=== PATIENT | female | born 2000 | race Hispanic/Latino ===

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

== ENCOUNTER 2019-03-01 17:25 | Observation (INO) | payer MEDICAID, OTHER ==
[~2019-03-01] VITALS: Ht 157.5 cm; Wt 77.1 kg
[2019-03-01 18:17] LABS: APPEARANCE,URINE Clear (CLEAR); BILIRUBIN,URINE Negative (NEGATIVE); COLOR,URINE Yellow (YELLOW); GLUCOSE, URINE (UA) Negative (NEGATIVE); KETONES,URINE Negative (NEGATIVE); LEUKOCYTE ESTERASE ,URINE Negative (NEGATIVE); NITRATE,URINE Negative (NEGATIVE); OCCULT BLOOD,URINE Negative (NEGATIVE); PROTEIN,URINE Negative (NEGATIVE); UROBILINOGEN,URINE 0.2 mg/dL (0.2-1.0)
[2019-05-20] MEDS ORDERED: FERR-82 PO (16:39)
[2019-05-20] MEDS ORDERED: PNV1TABL17 PO (16:39)
== END 2019-03-01 18:52 | disposition home or self-care (01) ==
LOC: EDH 17:25 → LDH 17:50
PROVIDERS: ADMIT Obstetrics & Gynecology; ATTEND Obstetrics & Gynecology
DX: O26.893 Other specified pregnancy related conditions, third trimester (principal); R10.30 Lower abdominal pain, unspecified; Z3A.28 28 weeks gestation of pregnancy
CPT/HCPCS: 81003; 99284; G0378

== ENCOUNTER 2019-05-19 11:47 | Observation (INO) | payer MEDICAID ==
[~2019-05-19] VITALS: Ht 157.5 cm; Wt 83.5 kg
[2019-05-19 12:41] LABS: BILIRUBIN,URINE Negative (NEGATIVE); COLOR,URINE Yellow (YELLOW); GLUCOSE, URINE (UA) Negative (NEGATIVE); KETONES,URINE Negative (NEGATIVE); LEUKOCYTE ESTERASE ,URINE Trace (NEGATIVE); NITRATE,URINE Negative (NEGATIVE); OCCULT BLOOD,URINE Moderate (NEGATIVE); PROTEIN,URINE Negative (NEGATIVE)
[2019-05-19 12:44] LABS: APPEARANCE,URINE CLOUDY (CLEAR)
[2019-05-19 12:54] LABS: BACTERIA,URINE Few /HPF (None Seen); MUCUS,URINE Moderate LPF (None Seen); WBC,URINE 0-1 /HPF (0-1)
[2019-05-20] MEDS ORDERED: PNV1TABL17 PO (16:39)
[2019-05-20] MEDS ORDERED: FERR-82 PO (16:39)
== END 2019-05-19 13:39 | disposition home or self-care (01) ==
LOC: EDH 11:47 → LDH 11:48
PROVIDERS: ADMIT Obstetrics & Gynecology; ATTEND Obstetrics & Gynecology
DX: O62.9 Abnormality of forces of labor, unspecified (principal); Z3A.39 39 weeks gestation of pregnancy
CPT/HCPCS: 81001; 99284; G0378 ×2

== ENCOUNTER 2020-08-01 15:06 | Observation (INO) | payer MEDICAID ==
[~2020-08-01] VITALS: Ht 152.4 cm; Wt 78.0 kg
[~2020-08-01 15:06] MED LIST: FERR-82 PO; PNV1TABL17 PO
[2020-08-01 16:18] LABS: APPEARANCE,URINE Clear (CLEAR); BILIRUBIN,URINE Negative (NEGATIVE); COLOR,URINE Yellow (YELLOW); GLUCOSE, URINE (UA) Negative (NEGATIVE); KETONES,URINE Negative (NEGATIVE); LEUKOCYTE ESTERASE ,URINE Moderate (NEGATIVE); NITRATE,URINE Negative (NEGATIVE); OCCULT BLOOD,URINE Negative (NEGATIVE); PROTEIN,URINE Negative (NEGATIVE)
[2020-08-01 16:27] LABS: AMPHET/METH SCREEN,URINE NEGATIVE (NEGATIVE); BARBITURATE SCREEN, URINE NEGATIVE (NEGATIVE); BENZODIAZEPINES SCREEN,URINE NEGATIVE (NEGATIVE); CANNABINOID SCREEN,URINE NEGATIVE (NEGATIVE); COCAINE SCREEN,URINE NEGATIVE (NEGATIVE); OPIATE SCREEN,URINE NEGATIVE (NEGATIVE); PHENCYCLIDINE SCREEN,URINE NEGATIVE (NEGATIVE)
[2020-08-01 16:33] LABS: RBC,URINE 0-1 /HPF (0-1)
[2020-08-01 16:34] LABS: BACTERIA,URINE Few /HPF (None Seen); SQUAMOUS EPITHELIAL CELL,UR Moderate /HPF (0-2)
[2020-08-01 16:35] LABS: MUCUS,URINE Few LPF (None Seen)
[2020-08-01 16:43] VITALS: BP 121/65
== END 2020-08-01 17:05 | disposition home or self-care (01) ==
LOC: EDH 15:06 → LDH 15:07
PROVIDERS: ADMIT Obstetrics & Gynecology; ATTEND Obstetrics & Gynecology
DX: O62.9 Abnormality of forces of labor, unspecified (principal); Z3A.37 37 weeks gestation of pregnancy
CPT/HCPCS: 80305; 81001; 87088; 99284; G0378 ×2

== ENCOUNTER 2020-08-03 09:01 | Inpatient (IN) | payer MEDICAID ==
[~2020-08-03] VITALS: Ht 157.5 cm; Wt 78.0 kg
[2020-08-03] MEDS ORDERED: LACTATED RINGERS 1000ML 1,000 ML IV PRN (09:32)
[2020-08-03 09:41] LABS: HEMATOCRIT 32.4 % (36-48); MEAN CORPUSCULAR HEMOGLOBIN 25.2 pg (27.0-33.0); MEAN CORPUSCULAR HGB CONC 31.5 g/dL (32.0-36.0); MEAN CORPUSCULAR VOLUME 80.2 fL (80-100); RED BLOOD CELL COUNT(AUTO) 4.04 MIL/uL (4.00-5.50); RED CELL DISTRIBUTION WIDTH 14.1 % (11.0-15.5)
[2020-08-03 09:53] LABS: APPEARANCE,URINE Cloudy (CLEAR); BILIRUBIN,URINE Negative (NEGATIVE); COLOR,URINE Yellow (YELLOW); GLUCOSE, URINE (UA) Negative (NEGATIVE); KETONES,URINE Negative (NEGATIVE); LEUKOCYTE ESTERASE ,URINE Trace (NEGATIVE); NITRATE,URINE Negative (NEGATIVE); OCCULT BLOOD,URINE Moderate (NEGATIVE); PROTEIN,URINE Negative (NEGATIVE)
[2020-08-03 10:00] LABS: BACTERIA,URINE Few /HPF (None Seen); MUCUS,URINE Few LPF (None Seen); SQUAMOUS EPITHELIAL CELL,UR Few /HPF (0-2)
[2020-08-03] MEDS ORDERED: AMPICILLIN 2GM+NS 100ML 100 ML IV SCH (10:00)
[2020-08-03] MEDS ORDERED: AMPICILLIN 1GM+NS 50ML 50 ML IV SCH (10:00)
[2020-08-03] MEDS ORDERED: PROMETHAZINE HCL 25 MG/ML 1ML AMPULE IM PRN (10:00)
[2020-08-03] MEDS ORDERED: MEPERIDINE-PF 50 MG/ML SYG IVP PRN (10:00)
[2020-08-03] MEDS ORDERED: EPHEDRINE SULFATE 50 MG/ML AMPULE IVP PRN (10:00)
[2020-08-03] MEDS ORDERED: OXYTOCIN 10 USP UNITS/ML 20 UNIT in LACTATED RINGERS 1000ML 1,000 ML IV SCH (10:00)
[2020-08-03] MEDS ORDERED: LACTATED RINGERS 500 ML 500 ML IV PRN (10:00)
[2020-08-03] MEDS ORDERED: OXYTOCIN-LR 20 UNITS/1000 ML 1,000 ML IV SCH ×2 (10:00→13:45)
[2020-08-03] MEDS ORDERED: NALOXONE HCL 0.4 MG/1 ML ML IV PRN (10:00)
[2020-08-03] MEDS ORDERED: ACETAMINOPHEN-CODEINE 300/30MG TAB PO PRN (13:45)
[2020-08-03] MEDS ORDERED: WITCH HAZEL 1 PAD TP PRN (13:45)
[2020-08-03] MEDS ORDERED: LANOLIN 30GM OINTMENT TP PRN (13:45)
[2020-08-03] MEDS ORDERED: BENZOCAINE/LANOLIN/ALOE VERA 60 ML AEROSOL TP PRN (13:45)
[2020-08-03] MEDS ORDERED: MEASLES/MUMPS/RUBELLA VACCINE, LIVE 0.5 ML/VIAL SQ PRN (13:45)
[2020-08-03] MEDS ORDERED: DIPH,PERTUSS(ACELL),TET VAC/PF 0.5 ML VIAL IM PRN (13:45)
[2020-08-03] MEDS ORDERED: ACETAMINOPHEN 325 MG TAB PO PRN (13:45)
[2020-08-03 14:55] VITALS: BP 116/71
[2020-08-03 16:30] VITALS: BP 111/72
[2020-08-03] MEDS: IBUPROFEN 600 MG TABLET PO PRN (19:43)
[2020-08-03 19:45] VITALS: BP 111/72
[2020-08-03] MEDS: DOCUSATE SODIUM 100 MG CAP PO SCH (20:55)
[2020-08-04 00:06] VITALS: BP 102/61
[2020-08-04 03:58] VITALS: BP 95/60
[2020-08-04 06:44] LABS: HEMATOCRIT 31.1 % (36-48); MEAN CORPUSCULAR HGB CONC 31.5 g/dL (32.0-36.0); MEAN CORPUSCULAR VOLUME 79.3 fL (80-100); PLATELET COUNT (AUTO) 274 K/uL (130-400); RED BLOOD CELL COUNT(AUTO) 3.92 MIL/uL (4.00-5.50); RED CELL DISTRIBUTION WIDTH 14.3 % (11.0-15.5); WHITE BLOOD COUNT (AUTO) 11.7 K/uL (4.8-10.8)
[2020-08-04 07:18] LABS: HEPATITIS Bs ANTIGEN SCREEN P Negative (Negative)
[2020-08-04 07:45] VITALS: BP 120/78
[2020-08-04] MEDS: DOCUSATE SODIUM 100 MG CAP PO SCH (09:43)
[2020-08-04] MEDS: IBUPROFEN 600 MG TABLET PO PRN (09:45)
[2020-08-04 11:11] VITALS: BP 106/64
--- NOTE | 2020-08-04 12:35 | NUR ---
pt is dismissed, verbal and written discharge instructions given, pls refer to exit care. informed of the follow up appointment, prescription given. informed to call the doctor for further questions. pt voiced understanding to all things discussed. Waiting for baby's discharge. Addendum: 08/04/20 at 1257 by JAN NEVAREZ RN Amended: Links added.
[2020-08-04 16:42] VITALS: BP 103/71
--- NOTE | 2020-08-04 17:30 | NUR ---
pt is dismissed in stable condition, brought to private car via wheelchair by Kaitlyn Raymond RN Addendum: 08/04/20 at 1733 by JAN NEVAREZ RN Amended: Links added.
== END 2020-08-04 17:30 | disposition home or self-care (01) | DRG 560 ==
LOC: EDH 09:01 → OBSVTOIN 09:02 → LDH 09:02 → WSH 15:32
PROVIDERS: ADMIT Obstetrics & Gynecology; ATTEND Obstetrics & Gynecology
PROC: 10E0XZZ Delivery of Products of Conception, External Approach (ICD-10-PCS; principal; 2020-08-03)
PROC: 3E0234Z Introduction of Serum, Toxoid and Vaccine into Muscle, Percutaneous Approach (ICD-10-PCS; 2020-08-03)
DX: O69.81X0 Labor and delivery complicated by cord around neck, without compression, not applicable or unspecified (principal); Z3A.38 38 weeks gestation of pregnancy; Z37.0 Single live birth; O99.824 Streptococcus B carrier state complicating childbirth; Z23 Encounter for immunization
CPT/HCPCS: 36415; 80305; 81001; 85027; 86592; 86850; 86900; 86901; 87088; 87340; A4351; A4606; G0378; J0290; J2590; J7120

== ENCOUNTER 2021-04-01 11:15 | Emergency (ER) | payer MEDICAID ==
[~2021-04-01 11:15] MED LIST changes: -FERR-82 PO
[2021-04-01] MEDS ORDERED: ONDANSETRON ODT 4 MG TAB ONE (11:27)
[2021-04-01 11:35] LABS: APPEARANCE,URINE Turbid (CLEAR); BILIRUBIN,URINE Small (NEGATIVE); COLOR,URINE Dark Yellow (YELLOW); GLUCOSE, URINE (UA) Negative (NEGATIVE); KETONES,URINE Trace mg/dL (NEGATIVE); LEUKOCYTE ESTERASE ,URINE Small (NEGATIVE); NITRATE,URINE Negative (NEGATIVE); OCCULT BLOOD,URINE Negative (NEGATIVE); PH,URINE >=9.0 (5.0-8.0); PROTEIN,URINE POS 1+ mg/dL (NEGATIVE)
[2021-04-01 11:42] LABS: HCG,QUAL RESULT NEGATIVE (NEGATIVE)
[2021-04-01 11:48] LABS: RBC,URINE 0-1 /HPF (0-1)
[2021-04-01 11:49] LABS: AMORPHOUS SEDIMENT,UR Moderate /LPF (None Seen); BACTERIA,URINE Moderate /HPF (None Seen); SQUAMOUS EPITHELIAL CELL,UR Moderate /HPF (0-2)
== END 2021-04-01 12:14 | disposition home or self-care (01) ==
LOC: EDH 11:15
DX: R11.2 Nausea with vomiting, unspecified (principal)
CPT/HCPCS: 81001; 81025; 87088

== ENCOUNTER 2021-05-05 18:37 | Emergency (ER) | payer MEDICAID, OTHER ==
[~2021-05-05] VITALS: Ht 157.5 cm; Wt 78.9 kg
[2021-05-05 18:39] VITALS: BP 111/65
== END 2021-05-05 20:29 | disposition left against medical advice (07) ==
LOC: EDH 18:37
DX: R11.2 Nausea with vomiting, unspecified (principal); Z53.21 Procedure and treatment not carried out due to patient leaving prior to being seen by health care provider

== ENCOUNTER 2021-05-07 02:45 | Emergency (ER) | payer MEDICAID, OTHER ==
[~2021-05-07] VITALS: Ht 157.5 cm; Wt 74.8 kg
[2021-05-07 03:15] VITALS: BP 92/59
[2021-05-07] MEDS ORDERED: FAMOTIDINE 20MG VIAL IV ONE (03:15)
[2021-05-07] MEDS ORDERED: DICYCLOMINE 20MG (10MG/ML) AMP IM ONE (03:15)
[2021-05-07] MEDS ORDERED: ONDANSETRON 4MG INJ IVP ONE (03:15)
[2021-05-07] MEDS ORDERED: NACL 0.9% 1000ML 1,000 ML IV ONE (03:15)
[2021-05-07 03:46] LABS: BASOPHILS % (AUTO) 0.3 % (0.0-5.0); EOSINOPHILS % (AUTO) 0.8 % (0.0-8.0); HEMATOCRIT 37.8 % (36-48); LYMPHOCYTES % (AUTO) 23.7 % (21.0-51.0); MEAN CORPUSCULAR HEMOGLOBIN 27.9 pg (27.0-33.0); MEAN CORPUSCULAR VOLUME 87.1 fL (80-100); MONOCYTES % (AUTO) 8.7 % (3.0-13.0); PLATELET COUNT (AUTO) 332 K/uL (130-400); RED BLOOD CELL COUNT(AUTO) 4.34 MIL/uL (4.00-5.50); RED CELL DISTRIBUTION WIDTH 13.8 % (11.0-15.5); WHITE BLOOD COUNT (AUTO) 10.8 K/uL (4.8-10.8)
[2021-05-07 03:59] LABS: CREATININE 0.7 mg/dL (0.5-1.5); POTASSIUM 3.5 mmol/L (3.5-5.1)
[2021-05-07 04:03] LABS: ALBUMIN 3.7 g/dL (3.5-5.0); BILIRUBIN,TOTAL 0.3 mg/dL (0.2-1.0)
[2021-05-07 05:05] LABS: BILIRUBIN,URINE Negative (NEGATIVE); COLOR,URINE Yellow (YELLOW); GLUCOSE, URINE (UA) Negative (NEGATIVE); KETONES,URINE Negative (NEGATIVE); LEUKOCYTE ESTERASE ,URINE Large (NEGATIVE); NITRATE,URINE Negative (NEGATIVE); OCCULT BLOOD,URINE Negative (NEGATIVE); PH,URINE 7.5 (5.0-8.0); PROTEIN,URINE Negative (NEGATIVE)
[2021-05-07 05:06] LABS: APPEARANCE,URINE SLIGHTLY CLOUDY (CLEAR)
[2021-05-07 05:07] LABS: HCG,QUAL RESULT NEGATIVE (NEGATIVE)
[2021-05-07 05:13] LABS: BACTERIA,URINE Moderate /HPF (None Seen)
[2021-05-07 05:14] LABS: AMORPHOUS SEDIMENT,UR Few /LPF (None Seen); MUCUS,URINE Few LPF (None Seen)
[2021-05-07 05:15] VITALS: BP 117/75
[2021-05-07] MEDS ORDERED: METOCLOPRAMIDE 10 MG/2 ML VIAL IM ONE (05:30)
[2021-05-07] MEDS ORDERED: DiphenhydrAMINE HCL 50 MG/ML VIAL IV ONE (05:30)
[2021-05-07] MEDS ORDERED: DiphenhydrAMINE HCL 50 MG/ML VIAL ONE (05:31)
[2021-05-07] MEDS ORDERED: METOCLOPRAMIDE 10 MG/2 ML VIAL ONE (05:31)
[2021-05-07 06:48] VITALS: BP 98/62
[2021-05-07] MEDS ORDERED: CEPH500B PO (07:00)
[2021-05-07] MEDS ORDERED: CEFTRIAXONE 500MG VIAL IV SCH (07:00)
[2021-05-07] MEDS ORDERED: FAMO-136 PO (07:00)
[2021-05-07] MEDS ORDERED: METO10TA41 PO (07:00)
[2021-05-07 07:25] VITALS: BP 103/61
== END 2021-05-07 07:42 | disposition home or self-care (01) ==
LOC: EDH 02:58
DX: N30.90 Cystitis, unspecified without hematuria (principal); R11.2 Nausea with vomiting, unspecified; E66.9 Obesity, unspecified; Z79.899 Other long term (current) drug therapy
CPT/HCPCS: 36415; 80053; 81001; 81025; 83690; 85025; 87088; 96365; 96372; 96375; 99285; J0500; J0696; J1200; J2405; J2765; S0028; J3490

== ENCOUNTER 2021-09-26 16:36 | Emergency (ER) | payer MEDICAID ==
[~2021-09-26] VITALS: Ht 157.5 cm; Wt 65.3 kg
[~2021-09-26 16:36] MED LIST changes: +CEPH500B PO; +FAMO-136 PO; +METO10TA41 PO
[2021-09-26] MEDS ORDERED: ACETAMINOPHEN 500 MG TABLET PO ONE (17:00)
[2021-09-26] MEDS ORDERED: 0.9%NACL 1000ML 1,000 ML IV ONE (17:00)
[2021-09-26 17:17] LABS: BASOPHILS % (AUTO) 0.2 % (0.0-5.0); EOSINOPHILS % (AUTO) 0.4 % (0.0-8.0); HEMATOCRIT 38.6 % (36-48); LYMPHOCYTES % (AUTO) 11.8 % (21.0-51.0); MEAN CORPUSCULAR HEMOGLOBIN 27.5 pg (27.0-33.0); MEAN CORPUSCULAR HGB CONC 33.7 g/dL (32.0-36.0); MEAN CORPUSCULAR VOLUME 81.6 fL (79-99); MONOCYTES % (AUTO) 5.6 % (3.0-13.0); NEUTROPHILS % (AUTO) 81.7 % (40.0-77.0); PLATELET COUNT (AUTO) 330 K/uL (130-400); RED BLOOD CELL COUNT(AUTO) 4.73 MIL/uL (4.00-5.50); RED CELL DISTRIBUTION WIDTH 14.1 % (11.0-15.5); WHITE BLOOD COUNT (AUTO) 9.9 K/uL (4.8-10.8)
[2021-09-26 17:35] LABS: APPEARANCE,URINE Cloudy (CLEAR); BILIRUBIN,URINE Negative (NEGATIVE); COLOR,URINE Dark Yellow (YELLOW); GLUCOSE, URINE (UA) Negative (NEGATIVE); KETONES,URINE >=160 mg/dL (NEGATIVE); LEUKOCYTE ESTERASE ,URINE Trace (NEGATIVE); NITRATE,URINE Negative (NEGATIVE); OCCULT BLOOD,URINE Large (NEGATIVE); PH,URINE 5.5 (5.0-8.0); PROTEIN,URINE POS 1+ mg/dL (NEGATIVE)
[2021-09-26 17:36] LABS: ALBUMIN 4.1 g/dL (3.5-5.0); BILIRUBIN,TOTAL 0.3 mg/dL (0.2-1.0); CREATININE 0.7 mg/dL (0.5-1.5); CRP QUANTITATIVE 68.9 mg/L (0.00-9.0); TOTAL PROTEIN, SERUM 8.8 g/dL (6.0-8.3)
[2021-09-26 17:40] LABS: POTASSIUM 2.8 mmol/L (3.5-5.1)
[2021-09-26 17:44] LABS: HCG,QUAL RESULT NEGATIVE (NEGATIVE)
[2021-09-26 18:08] LABS: BACTERIA,URINE Few /HPF (None Seen); MUCUS,URINE Moderate LPF (None Seen); SQUAMOUS EPITHELIAL CELL,UR Few /HPF (0-2)
[2021-09-26 18:25] VITALS: BP 96/60
[2021-09-26] MEDS ORDERED: ONDA4TAB10 PO (18:39)
[2021-09-26] MEDS ORDERED: POTA-187 PO (18:40)
[2021-09-26] MEDS ORDERED: POTASSIUM BICARB/CIT AC 25 MEQ TABLET.EFF PO ONE (18:55)
== END 2021-09-26 18:55 | disposition home or self-care (01) ==
LOC: EDH 16:36
DX: A08.4 Viral intestinal infection, unspecified (principal); E86.0 Dehydration; E87.6 Hypokalemia; Z79.899 Other long term (current) drug therapy
CPT/HCPCS: 36415; 71045; 80053; 81001; 81025; 83605; 85025; 86140; 87040 ×2; 96360; 99284; J7030

== ENCOUNTER 2022-03-15 12:24 | Emergency (ER) | payer MEDICAID ==
[~2022-03-15] VITALS: Ht 152.4 cm; Wt 59.0 kg
[~2022-03-15 12:24] MED LIST changes: +ONDA4TAB10 PO; +POTA-187 PO
[2022-03-15 12:27] VITALS: BP 116/68
[2022-03-15 12:53] LABS: BASOPHILS % (AUTO) 0.4 % (0.0-5.0); EOSINOPHILS % (AUTO) 1.4 % (0.0-8.0); HEMATOCRIT 37.1 % (36-48); LYMPHOCYTES % (AUTO) 37.3 % (21.0-51.0); MEAN CORPUSCULAR HEMOGLOBIN 28.4 pg (27.0-33.0); MEAN CORPUSCULAR HGB CONC 32.6 g/dL (32.0-36.0); MEAN CORPUSCULAR VOLUME 87.1 fL (79-99); MONOCYTES % (AUTO) 9.1 % (3.0-13.0); NEUTROPHILS % (AUTO) 51.7 % (40.0-77.0); PLATELET COUNT (AUTO) 308 K/uL (130-400); RED BLOOD CELL COUNT(AUTO) 4.26 MIL/uL (4.00-5.50); RED CELL DISTRIBUTION WIDTH 13.8 % (11.0-15.5); WHITE BLOOD COUNT (AUTO) 7.1 K/uL (4.8-10.8)
[2022-03-15] MEDS ORDERED: LIDOCAINE HCL 2% VISCOUS 15 ML UDCUP PO ONE (13:00)
[2022-03-15] MEDS ORDERED: DICYCLOMINE HCL 10 MG/5 ML ML PO ONE (13:00)
[2022-03-15] MEDS ORDERED: MAG/ALUM/SIMETH 30 ML UDCUP PO ONE (13:00)
[2022-03-15] MEDS ORDERED: FAMOTIDINE 20MG VIAL IV ONE (13:00)
[2022-03-15 13:02] LABS: CREATININE 0.6 mg/dL (0.5-1.5); POTASSIUM 3.6 mmol/L (3.5-5.1)
[2022-03-15 13:06] LABS: ALBUMIN 3.8 g/dL (3.5-5.0); BILIRUBIN,TOTAL 0.3 mg/dL (0.2-1.0); TOTAL PROTEIN, SERUM 7.3 g/dL (6.0-8.3)
[2022-03-15 13:23] LABS: APPEARANCE,URINE Clear (CLEAR); BILIRUBIN,URINE Negative (NEGATIVE); COLOR,URINE Yellow (YELLOW); GLUCOSE, URINE (UA) Negative (NEGATIVE); KETONES,URINE Negative (NEGATIVE); LEUKOCYTE ESTERASE ,URINE Small (NEGATIVE); NITRATE,URINE Negative (NEGATIVE); OCCULT BLOOD,URINE Negative (NEGATIVE); PH,URINE 7.5 (5.0-8.0); PROTEIN,URINE Negative (NEGATIVE)
[2022-03-15 13:31] LABS: AMPHET/METH SCREEN,URINE NEGATIVE (NEGATIVE); BARBITURATE SCREEN, URINE NEGATIVE (NEGATIVE); BENZODIAZEPINES SCREEN,URINE NEGATIVE (NEGATIVE); CANNABINOID SCREEN,URINE NEGATIVE (NEGATIVE); COCAINE SCREEN,URINE NEGATIVE (NEGATIVE); HCG,QUAL RESULT NEGATIVE (NEGATIVE); OPIATE SCREEN,URINE NEGATIVE (NEGATIVE); PHENCYCLIDINE SCREEN,URINE NEGATIVE (NEGATIVE)
[2022-03-15 14:08] LABS: BACTERIA,URINE Few /HPF (None Seen); RBC,URINE None Seen /HPF (0-1); WBC,URINE 0-1 /HPF (0-1)
[2022-03-15] MEDS ORDERED: FAMO-136 PO (14:14)
== END 2022-03-15 14:20 | disposition home or self-care (01) ==
LOC: EDH 12:24
DX: K21.9 Gastro-esophageal reflux disease without esophagitis (principal); R07.89 Other chest pain; Z91.018 Allergy to other foods; Z91.010 Allergy to peanuts; Z79.899 Other long term (current) drug therapy
CPT/HCPCS: 36415; 71045; 80053; 80305; 81001; 81025; 82550; 83690; 84484; 85025; 93005; 96374; 99285; S0028; J3490

== ENCOUNTER 2022-04-23 00:45 | Emergency (ER) | payer MEDICAID ==
[~2022-04-23] VITALS: Ht 157.5 cm; Wt 60.8 kg
[2022-04-23] MEDS ORDERED: KETOROLAC 60 MG VIAL (30MG/ML) IM ONE (03:30)
[2022-04-23] MEDS ORDERED: PENICILLIN V POTASSIUM 500 MG TABLET PO ONE (03:30)
[2022-04-23] MEDS ORDERED: MORPHINE 4 MG SYG IM ONE (03:30)
[2022-04-23] MEDS ORDERED: ACET-2079 PO (04:36)
[2022-04-23] MEDS ORDERED: PENI500T2 PO (04:36)
[2022-04-23] MEDS ORDERED: IBUP-2070 PO (04:36)
[2022-04-23 05:01] VITALS: BP 112/69
== END 2022-04-23 05:07 | disposition home or self-care (01) ==
LOC: EDH 00:45
DX: K02.9 Dental caries, unspecified (principal); K08.89 Other specified disorders of teeth and supporting structures; Z79.1 Long term (current) use of non-steroidal anti-inflammatories (NSAID); Z79.899 Other long term (current) drug therapy
CPT/HCPCS: 96372 ×2; 99284; J1885; J2270

== ENCOUNTER 2022-06-22 03:31 | Emergency (ER) | payer MEDICAID ==
[~2022-06-22] VITALS: Ht 154.9 cm; Wt 55.8 kg
[~2022-06-22 03:31] MED LIST changes: +ACET-2079 PO; +IBUP-2070 PO; +PENI500T2 PO
[2022-06-22 05:31] VITALS: BP 113/77
[2022-06-22] MEDS ORDERED: IBUP-2070 PO (05:36)
[2022-06-22] MEDS ORDERED: D-ME118S47 PO (05:36)
[2022-06-22] MEDS ORDERED: ONDA4TAB10 PO (05:36)
== END 2022-06-22 05:40 | disposition home or self-care (01) ==
LOC: EDH 03:31
DX: U07.1 COVID-19 (principal); Z91.010 Allergy to peanuts; Z79.899 Other long term (current) drug therapy
CPT/HCPCS: 99283; 87635; 87804 ×2; C9803

== ENCOUNTER 2022-07-02 00:48 | Emergency (ER) | payer MEDICAID ==
[~2022-07-02] VITALS: Ht 162.6 cm; Wt 56.2 kg
[~2022-07-02 00:48] MED LIST changes: +D-ME118S47 PO
[2022-07-02 02:03] VITALS: BP 123/78
[2022-07-02] MEDS ORDERED: ACET-2079 PO (02:24)
[2022-07-02] MEDS ORDERED: IBUP-2070 PO (02:24)
[2022-07-02] MEDS ORDERED: AMOX1TAB16 PO (02:24)
[2022-07-02] MEDS ORDERED: BENZOCAINE/LANOLIN/ALOE VERA 60 ML AEROSOL TP ONE (02:25)
[2022-07-02] MEDS ORDERED: BENZOCAINE 20% 57 GM SPRAY TP SCH (02:30)
[2022-07-02] MEDS ORDERED: KETOROLAC 60 MG VIAL (30MG/ML) IM ONE (02:30)
[2022-07-02] MEDS ORDERED: AMOX/CLAV 875/125MG TAB PO ONE (02:30)
[2022-07-02] MEDS ORDERED: HYDROCODONE/ACETAMINOPHEN 5/325 MG TAB PO ONE (02:30)
== END 2022-07-02 02:38 | disposition home or self-care (01) ==
LOC: EDH 00:48
DX: K02.9 Dental caries, unspecified (principal); K08.89 Other specified disorders of teeth and supporting structures; Z79.1 Long term (current) use of non-steroidal anti-inflammatories (NSAID); Z79.899 Other long term (current) drug therapy
CPT/HCPCS: 99283; 96372; J1885

== ENCOUNTER 2022-07-02 23:58 | Emergency (ER) | payer MEDICAID ==
[~2022-07-02] VITALS: Ht 157.5 cm; Wt 56.2 kg
[~2022-07-02 23:58] MED LIST changes: +AMOX1TAB16 PO
[2022-07-03] MEDS ORDERED: MORPHINE 4 MG SYG ONE (00:38)
[2022-07-03 00:52] VITALS: BP 111/63
[2022-07-03] MEDS ORDERED: MORPHINE 4 MG SYG IM ONE ×2 (01:00)
== END 2022-07-03 00:58 | disposition home or self-care (01) ==
LOC: EDH 07-03 00:05
DX: K02.9 Dental caries, unspecified (principal); K08.89 Other specified disorders of teeth and supporting structures; R59.9 Enlarged lymph nodes, unspecified; Z91.018 Allergy to other foods; Z91.010 Allergy to peanuts; Z79.899 Other long term (current) drug therapy
CPT/HCPCS: 99283; 96372; J2270

== ENCOUNTER 2022-08-01 21:45 | Emergency (ER) | payer MEDICAID ==
[~2022-08-01] VITALS: Ht 157.5 cm; Wt 58.1 kg
[2022-08-01 22:20] LABS: BASOPHILS % (AUTO) 0.3 % (0.0-5.0); EOSINOPHILS % (AUTO) 1.8 % (0.0-8.0); HEMATOCRIT 29.8 % (36-48); LYMPHOCYTES % (AUTO) 26.4 % (21.0-51.0); MEAN CORPUSCULAR HEMOGLOBIN 26.6 pg (27.0-33.0); MEAN CORPUSCULAR HGB CONC 32.2 g/dL (32.0-36.0); MEAN CORPUSCULAR VOLUME 82.5 fL (79-99); MONOCYTES % (AUTO) 8.7 % (3.0-13.0); NEUTROPHILS % (AUTO) 62.5 % (40.0-77.0); PLATELET COUNT (AUTO) 310 K/uL (130-400); RED BLOOD CELL COUNT(AUTO) 3.61 MIL/uL (4.00-5.50); RED CELL DISTRIBUTION WIDTH 15.1 % (11.0-15.5)
[2022-08-01 22:29] LABS: APPEARANCE,URINE TURBID (CLEAR); BILIRUBIN,URINE NEGATIVE (NEGATIVE); GLUCOSE, URINE (UA) NEGATIVE (NEGATIVE); KETONES,URINE NEGATIVE (NEGATIVE); LEUKOCYTE ESTERASE ,URINE 25 Leu/uL (NEGATIVE); NITRATE,URINE NEGATIVE (NEGATIVE); OCCULT BLOOD,URINE LARGE (NEGATIVE); PH,URINE 5.5 (5.0-8.0); PROTEIN,URINE 30 mg/dL (NEGATIVE); UROBILINOGEN,URINE 0.2 mg/dL (0.2-1.0)
[2022-08-01 22:30] LABS: COLOR,URINE YELLOW (YELLOW)
[2022-08-01 22:35] LABS: BACTERIA,URINE Few /HPF (None Seen); RBC,URINE TNTC /HPF (0-1)
[2022-08-01 22:36] LABS: HCG,QUALITATIVE URINE NEGATIVE (NEGATIVE)
[2022-08-01 22:38] LABS: ALBUMIN 3.2 g/dL (3.5-5.0); CREATININE 0.6 mg/dL (0.5-1.5); TOTAL PROTEIN, SERUM 7.4 g/dL (6.0-8.3)
[2022-08-01] MEDS ORDERED: KETOROLAC 30MG VIAL (30MG/ML) IVP ONE (23:30)
[2022-08-02] MEDS ORDERED: ONDA4TAB10 PO (01:14)
[2022-08-02] MEDS ORDERED: IBUP-2070 PO (01:14)
[2022-08-02] MEDS ORDERED: DICY20TA2 PO (01:14)
[2022-08-02 01:44] VITALS: BP 113/80
== END 2022-08-02 01:49 | disposition home or self-care (01) ==
LOC: EDH 21:45
DX: K80.50 Calculus of bile duct without cholangitis or cholecystitis without obstruction (principal); R11.2 Nausea with vomiting, unspecified; Z79.1 Long term (current) use of non-steroidal anti-inflammatories (NSAID); Z79.899 Other long term (current) drug therapy
CPT/HCPCS: 99284; 96374; 76705; 80053; 83690; 85025; 87088; 81001; 81025; 36415; J1885

== ENCOUNTER 2022-10-19 18:21 | Emergency (ER) | payer MEDICAID ==
[~2022-10-19] VITALS: Ht 157.5 cm; Wt 56.2 kg
[~2022-10-19 18:21] MED LIST changes: +DICY20TA2 PO
[2022-10-19 18:55] VITALS: BP 105/64
[2022-10-19 19:35] LABS: BILIRUBIN,URINE NEGATIVE (NEGATIVE); COLOR,URINE YELLOW (YELLOW); GLUCOSE, URINE (UA) 50 mg/dL (NEGATIVE); KETONES,URINE NEGATIVE (NEGATIVE); LEUKOCYTE ESTERASE ,URINE 250 Leu/uL (NEGATIVE); NITRATE,URINE NEGATIVE (NEGATIVE); OCCULT BLOOD,URINE NEGATIVE (NEGATIVE); PH,URINE 8.5 (5.0-8.0); PROTEIN,URINE 200 mg/dL (NEGATIVE); UROBILINOGEN,URINE 0.2 mg/dL (0.2-1.0)
[2022-10-19 19:36] LABS: APPEARANCE,URINE CLOUDY (CLEAR)
[2022-10-19 19:38] LABS: HCG,QUALITATIVE URINE NEGATIVE (NEGATIVE)
[2022-10-19] MEDS ORDERED: CYCL-309 PO (19:40)
[2022-10-19] MEDS ORDERED: OMEP40CA21 PO (19:40)
[2022-10-19] MEDS ORDERED: MELO-108 PO (19:40)
[2022-10-19 19:42] LABS: BACTERIA,URINE FEW /HPF (None Seen); MUCUS,URINE FEW LPF (None Seen); OTHER CASTS, URINE 3 /LPF (None Seen); SQUAMOUS EPITHELIAL CELL,UR FEW /HPF (0-2); YEAST,URINE BUDDING FEW /HPF (None Seen)
== END 2022-10-19 19:52 | disposition home or self-care (01) ==
LOC: EDH 18:21
DX: K29.70 Gastritis, unspecified, without bleeding (principal); M54.50 Low back pain, unspecified; Z91.018 Allergy to other foods; Z91.010 Allergy to peanuts; Z79.899 Other long term (current) drug therapy
CPT/HCPCS: 81001; 81025; 87088

== ENCOUNTER 2023-01-11 00:37 | Emergency (ER) | payer MEDICAID ==
[~2023-01-11] VITALS: Ht 157.5 cm; Wt 60.8 kg
[~2023-01-11 00:37] MED LIST changes: -ACET-2079 PO; -AMOX1TAB16 PO; -CEPH500B PO; +CYCL-309 PO; -D-ME118S47 PO; -DICY20TA2 PO; -FAMO-136 PO; -IBUP-2070 PO; +MELO-108 PO; -METO10TA41 PO; +OMEP40CA21 PO; -ONDA4TAB10 PO; -PENI500T2 PO; -POTA-187 PO
[2023-01-11 02:01] LABS: HEMATOCRIT 33.9 % (36-48); MEAN CORPUSCULAR HEMOGLOBIN 25.9 pg (27.0-33.0); MEAN CORPUSCULAR HGB CONC 31.6 g/dL (32.0-36.0); MEAN CORPUSCULAR VOLUME 82.1 fL (79-99); NEUTROPHILS % (AUTO) 61.2 % (40.0-77.0); PLATELET COUNT (AUTO) 302 K/uL (130-400); RED BLOOD CELL COUNT(AUTO) 4.13 MIL/uL (4.00-5.50); RED CELL DISTRIBUTION WIDTH 16.4 % (11.0-15.5); WHITE BLOOD COUNT (AUTO) 10.1 K/uL (4.8-10.8)
[2023-01-11 02:02] LABS: BASOPHILS % (AUTO) 0.4 % (0.0-5.0); EOSINOPHILS % (AUTO) 1.9 % (0.0-8.0); LYMPHOCYTES % (AUTO) 26.8 % (21.0-51.0); MONOCYTES % (AUTO) 9.5 % (3.0-13.0)
[2023-01-11 02:18] LABS: ALBUMIN 3.6 g/dL (3.5-5.0); CREATININE 0.7 mg/dL (0.5-1.5); POTASSIUM 3.4 mmol/L (3.5-5.1); TOTAL PROTEIN, SERUM 7.8 g/dL (6.0-8.3)
[2023-01-11 02:31] LABS: APPEARANCE,URINE CLEAR (CLEAR); COLOR,URINE COLORLESS (YELLOW)
[2023-01-11 02:32] LABS: BILIRUBIN,URINE N mg/dL (NEGATIVE); GLUCOSE, URINE (UA) NEGATIVE (NEGATIVE); KETONES,URINE NEGATIVE (NEGATIVE); LEUKOCYTE ESTERASE ,URINE 75 Leu/uL (NEGATIVE); NITRATE,URINE NEGATIVE (NEGATIVE); OCCULT BLOOD,URINE 3+ (NEGATIVE); PROTEIN,URINE NEGATIVE (NEGATIVE); UROBILINOGEN,URINE 0.2 mg/dL (0.2-1.0)
[2023-01-11 02:33] LABS: RBC,URINE 51-100 /HPF (0-1)
[2023-01-11 02:34] LABS: BACTERIA,URINE None Seen /HPF (None Seen)
[2023-01-11] MEDS ORDERED: PREN-61 PO (06:06)
[2023-01-11] MEDS ORDERED: CEPH500B PO (06:06)
[2023-01-11] MEDS ORDERED: CEPHALEXIN 500 MG CAPSULE PO SCH (06:30)
[2023-01-11] MEDS ORDERED: CEPHALEXIN 250 MG CAPSULE ONE (06:47)
[2023-01-11 06:55] VITALS: BP 110/72
== END 2023-01-11 06:57 | disposition home or self-care (01) ==
LOC: EDH 00:37
DX: O23.11 Infections of bladder in pregnancy, first trimester (principal); O20.9 Hemorrhage in early pregnancy, unspecified; Z91.010 Allergy to peanuts; Z79.899 Other long term (current) drug therapy; Z3A.01 Less than 8 weeks gestation of pregnancy
CPT/HCPCS: 36415; 76817; 80053; 81001; 81025; 84702; 85025; 86850; 86900; 86901; 87088

== ENCOUNTER 2023-05-27 01:22 | Emergency (ER) | payer MEDICAID ==
[~2023-05-27] VITALS: Ht 157.5 cm; Wt 64.4 kg
[~2023-05-27 01:22] MED LIST changes: +CEPH500B PO; +PREN-61 PO
[2023-05-27 01:23] VITALS: BP 128/84
[2023-05-27 01:39] LABS: BASOPHILS % (AUTO) 0.3 % (0.0-5.0); EOSINOPHILS % (AUTO) 1.7 % (0.0-8.0); HEMATOCRIT 34.2 % (36-48); LYMPHOCYTES % (AUTO) 33.4 % (21.0-51.0); MEAN CORPUSCULAR HEMOGLOBIN 26.4 pg (27.0-33.0); MEAN CORPUSCULAR HGB CONC 32.2 g/dL (32.0-36.0); MEAN CORPUSCULAR VOLUME 82.2 fL (79-99); MONOCYTES % (AUTO) 8.2 % (3.0-13.0); NEUTROPHILS % (AUTO) 56.1 % (40.0-77.0); PLATELET COUNT (AUTO) 321 K/uL (130-400); RED BLOOD CELL COUNT(AUTO) 4.16 MIL/uL (4.00-5.50); WHITE BLOOD COUNT (AUTO) 10.8 K/uL (4.8-10.8)
[2023-05-27 01:48] LABS: CREATININE 0.7 mg/dL (0.5-1.5); POTASSIUM 3.3 mmol/L (3.5-5.1)
[2023-05-27 01:58] LABS: ALBUMIN 3.5 g/dL (3.5-5.0); TOTAL PROTEIN, SERUM 7.6 g/dL (6.0-8.3)
[2023-05-27 02:11] LABS: APPEARANCE,URINE CLEAR (CLEAR); BILIRUBIN,URINE NEGATIVE (NEGATIVE); COLOR,URINE COLORLESS (YELLOW); GLUCOSE, URINE (UA) NEGATIVE (NEGATIVE); KETONES,URINE NEGATIVE (NEGATIVE); LEUKOCYTE ESTERASE ,URINE 75 Leu/uL (NEGATIVE); NITRATE,URINE NEGATIVE (NEGATIVE); OCCULT BLOOD,URINE LARGE (NEGATIVE); PH,URINE 6.5 (5.0-8.0); PROTEIN,URINE NEGATIVE (NEGATIVE); UROBILINOGEN,URINE 0.2 mg/dL (0.2-1.0)
[2023-05-27 02:21] LABS: BACTERIA,URINE RARE /HPF (None Seen); MUCUS,URINE RARE LPF (None Seen); SQUAMOUS EPITHELIAL CELL,UR RARE /HPF (0-2)
[2023-05-27] MEDS ORDERED: CEPH500B PO (03:41)
[2023-05-27] MEDS ORDERED: POTASSIUM BICARB/CIT AC 25 MEQ TABLET.EFF PO ONE (04:00)
[2023-05-27] MEDS ORDERED: CEPHALEXIN 500 MG CAPSULE PO ONE (04:00)
== END 2023-05-27 03:47 | disposition home or self-care (01) ==
LOC: EDH 01:22
DX: O20.0 Threatened abortion (principal); O23.40 Unspecified infection of urinary tract in pregnancy, unspecified trimester; N39.0 Urinary tract infection, site not specified; Z79.899 Other long term (current) drug therapy; Z91.010 Allergy to peanuts
CPT/HCPCS: 36415; 76817; 80053; 81001; 84702; 85025; 87088

== ENCOUNTER 2023-10-09 11:00 | Emergency (ER) | payer MEDICAID, OTHER ==
[~2023-10-09] VITALS: Ht 160 cm; Wt 65.8 kg
[2023-10-09 12:02] LABS: BASOPHILS # (AUTO) 0.03 K/uL (0.00-0.20); BASOPHILS % (AUTO) 0.2 % (0.0-5.0); EOSINOPHILS # (AUTO) 0.06 K/uL (0.00-0.70); EOSINOPHILS % (AUTO) 0.5 % (0.0-8.0); HEMATOCRIT 35.7 % (36-48); IMMATURE GRANULOCYTE ABSOLUTE 0.04 K/uL (0-1); LYMPHOCYTES # (AUTO) 0.6 K/uL (1.0-4.8); LYMPHOCYTES % (AUTO) 5.1 % (21.0-51.0); MEAN CORPUSCULAR HEMOGLOBIN 26.8 pg (27.0-33.0); MEAN CORPUSCULAR HGB CONC 32.2 g/dL (32.0-36.0); MEAN CORPUSCULAR VOLUME 83.2 fL (79-99); MONOCYTES # (AUTO) 0.7 K/uL (0.1-1.0); MONOCYTES % (AUTO) 5.6 % (3.0-13.0); NEUTROPHILS % (AUTO) 88.3 % (40.0-77.0); PLATELET COUNT (AUTO) 403 K/uL (130-400); RED BLOOD CELL COUNT(AUTO) 4.29 MIL/uL (4.00-5.50); RED CELL DISTRIBUTION WIDTH 14.4 % (11.0-15.5); WHITE BLOOD COUNT (AUTO) 12.5 K/uL (4.8-10.8)
[2023-10-09 12:13] LABS: CREATININE 0.6 mg/dL (0.5-1.5); POTASSIUM 3.8 mmol/L (3.5-5.1)
[2023-10-09 12:17] LABS: ALBUMIN 3.6 g/dL (3.5-5.0); BILIRUBIN,TOTAL 0.2 mg/dL (0.2-1.0); TOTAL PROTEIN, SERUM 8.3 g/dL (6.0-8.3)
[2023-10-09] MEDS ORDERED: ONDA22I SL (14:30)
[2023-10-09 14:56] VITALS: BP 117/74; PULSE 101; RESP 17; O2SAT 98
== END 2023-10-09 14:57 | disposition home or self-care (01) ==
LOC: EDH 11:00
DX: A08.4 Viral intestinal infection, unspecified (principal); Z79.899 Other long term (current) drug therapy; Z91.010 Allergy to peanuts
CPT/HCPCS: 36415; 74176; 80053; 81025; 83690; 85025

== ENCOUNTER 2024-07-25 11:43 | Inpatient (IN) | payer MEDICAID ==
[~2024-07-25] VITALS: Ht 157.5 cm; Wt 74.8 kg
[~2024-07-25 11:43] MED LIST changes: +ONDA22I SL
[2024-07-25 12:27] LABS: APPEARANCE,URINE CLOUDY (CLEAR); BILIRUBIN,URINE NEGATIVE (NEGATIVE); COLOR,URINE YELLOW (YELLOW); GLUCOSE, URINE (UA) NEGATIVE (NEGATIVE); KETONES,URINE NEGATIVE (NEGATIVE); LEUKOCYTE ESTERASE ,URINE 500 Leu/uL (NEGATIVE); NITRATE,URINE NEGATIVE (NEGATIVE); OCCULT BLOOD,URINE NEGATIVE (NEGATIVE); PH,URINE 6.5 (5.0-8.0); PROTEIN,URINE 10 mg/dL (NEGATIVE); UROBILINOGEN,URINE 0.2 mg/dL (0.2-1.0)
[2024-07-25 12:31] LABS: ADD UA MICROSCOPIC YES
[2024-07-25 12:43] LABS: BACTERIA,URINE FEW /HPF (None Seen); MUCUS,URINE FEW LPF (None Seen); OTHER CASTS, URINE 1 /LPF (None Seen); RBC,URINE 0-1 /HPF (0-1); SQUAMOUS EPITHELIAL CELL,UR MOD /HPF (0-2)
[2024-07-25] MEDS: LACTATED RINGERS 1000ML 1,000 ML IV PRN (13:06)
[2024-07-25] MEDS: AMPICILLIN 2GM+NS 100ML 100 ML IV SCH (13:06)
[2024-07-25 13:09] LABS: HEMATOCRIT 29.3 % (36-48); MEAN CORPUSCULAR HEMOGLOBIN 22.5 pg (27.0-33.0); MEAN CORPUSCULAR HGB CONC 29.7 g/dL (32.0-36.0); MEAN CORPUSCULAR VOLUME 75.9 fL (79-99); PLATELET COUNT (AUTO) 239 K/uL (130-400); RED BLOOD CELL COUNT(AUTO) 3.86 MIL/uL (4.00-5.50); RED CELL DISTRIBUTION WIDTH 17.1 % (11.0-15.5); WHITE BLOOD COUNT (AUTO) 9.7 K/uL (4.8-10.8)
[2024-07-25] MEDS ORDERED: NALoxone HCL 0.4 MG/1 ML ML IV PRN (16:00)
[2024-07-25] MEDS ORDERED: MEPERIDINE-PF 50 MG/ML SYG IVP PRN (16:00)
[2024-07-25] MEDS ORDERED: ePHEDrine SULFate 50 MG/ML AMPULE IVP PRN (16:00)
[2024-07-25] MEDS ORDERED: LACTATED RINGERS 500 ML 500 ML IV PRN (16:00)
[2024-07-25] MEDS ORDERED: PROMETHAZINE HCL 25 MG/ML 1ML AMPULE IM PRN (16:00)
[2024-07-25] MEDS: AMPICILLIN 1GM+NS 50ML 50 ML IV SCH (16:47)
[2024-07-25] MEDS ORDERED: FENTanyl CITRate PF 50 MCG/1 ML 2ML VIAL ONE (22:56)
[2024-07-26] MEDS: OXYTOCIN-LR 30 UNITS/500ML 500 ML IV SCH (01:16)
[2024-07-26] MEDS ORDERED: acetaMINOPHEN WITH coDEINE 1 TAB TAB PO PRN (04:00)
[2024-07-26] MEDS ORDERED: acetaMINOPHEN 325 MG TAB PO PRN (04:00)
[2024-07-26] MEDS ORDERED: LANOLIN 30GM OINTMENT TP PRN (04:00)
[2024-07-26 05:12] VITALS: BP 108/56; PULSE 82; RESP 18; TEMP 98.4
[2024-07-26] MEDS: IBUPROFEN 600 MG TABLET PO PRN (05:49)
[2024-07-26 07:30] VITALS: BP 100/60; PULSE 67; RESP 18; TEMP 98.1
[2024-07-26] MEDS: WITCH HAZEL 1 PAD TP PRN (08:54)
[2024-07-26] MEDS: doCUSate SODIUM 100 MG CAP PO SCH (08:54)
[2024-07-26] MEDS: BENZOCAINE/LANOLIN/ALOE VERA 60 ML AEROSOL TP PRN (08:54)
[2024-07-26 12:00] VITALS: BP 99/58; PULSE 87; RESP 18; TEMP 98
[2024-07-26 16:00] VITALS: BP 127/62; PULSE 73; RESP 18; TEMP 98.2
[2024-07-26 19:30] VITALS: BP 94/57; PULSE 84; RESP 20; TEMP 97.4
[2024-07-27] VITALS: BP 96/65; PULSE 77; RESP 20; TEMP 98.6
[2024-07-27 04:14] VITALS: BP 110/75; PULSE 81; RESP 20; TEMP 97.9
[2024-07-27 07:10] VITALS: BP 94/61; PULSE 63; RESP 18; TEMP 97.7
[2024-07-27 08:14] LABS: HEMATOCRIT 27.3 % (36-48); MEAN CORPUSCULAR HEMOGLOBIN 23.3 pg (27.0-33.0); MEAN CORPUSCULAR HGB CONC 30.4 g/dL (32.0-36.0); MEAN CORPUSCULAR VOLUME 76.7 fL (79-99); RED BLOOD CELL COUNT(AUTO) 3.56 MIL/uL (4.00-5.50); RED CELL DISTRIBUTION WIDTH 17.2 % (11.0-15.5); WHITE BLOOD COUNT (AUTO) 10.4 K/uL (4.8-10.8)
[2024-07-27 11:15] VITALS: BP 116/84; PULSE 70; RESP 18; TEMP 98
== END 2024-07-27 12:46 | disposition home or self-care (01) | DRG 560 ==
LOC: EDH 11:43 → LDH 11:44 → OBSVTOIN 11:44 → WSH 07-26 04:20
PROVIDERS: ADMIT Obstetrics & Gynecology; ATTEND Obstetrics & Gynecology
PROC: 10E0XZZ Delivery of Products of Conception, External Approach (ICD-10-PCS; principal; 2024-07-25)
PROC: 0HQ9XZZ Repair Perineum Skin, External Approach (ICD-10-PCS; 2024-07-25)
PROC: 3E0R3BZ Introduction of Anesthetic Agent into Spinal Canal, Percutaneous Approach (ICD-10-PCS; 2024-07-25)
PROC: 00HU33Z Insertion of Infusion Device into Spinal Canal, Percutaneous Approach (ICD-10-PCS; 2024-07-25)
DX: O99.824 Streptococcus B carrier state complicating childbirth (principal); Z37.0 Single live birth; O70.0 First degree perineal laceration during delivery; Z3A.38 38 weeks gestation of pregnancy
CPT/HCPCS: 36415; 81001; 82120; 85027; 86592; 86850; 86900; 86901; 87086; 87186; 87340; A4314; G0378; J0290; J2795; J3010